=== PATIENT | female | born 1980 | race American Indian/Alaskan Native ===

== ENCOUNTER 2021-01-13 21:19 | Outpatient (CLI) | payer OTHER ==
[2021-01-13] MEDS ORDERED: LACTATED RINGERS 1,000 ML IV ONE (22:19)
[2021-01-13 22:42] LABS: Bilirubin,Urine NEG (Negative); Blood,Urine NEG (Negative); Color,Urine Yellow (Yellow); Mucus,Urine 1+ /HPF
[2021-01-13] MEDS ORDERED: ACETAMINOPHEN 500 MG TAB PO ONE (22:47)
[2021-01-13 23:15] LABS: Basophils % (Auto) 0.3 % (0.0-1.8); Eosinophils # (Auto) 0.1 K/mm3 (0.0-0.4); Hematocrit 32.4 % (30.3-42.9); Hemoglobin 10.1 gm/dl (10.1-14.3); Lymphocytes # (Auto) 2.3 K/mm3 (1.2-5.4); Mean Corpuscular HGB Conc 31 % (30-34); Mean Corpuscular Volume 89 fl (79-97); Monocytes # (Auto) 0.6 K/mm3 (0.0-0.8); Platelet Count 250 K/mm3 (140-440); Red Blood Count 3.66 M/mm3 (3.65-5.03); Red Cell Distribution Width 13.9 % (13.2-15.2)
[2021-01-13 23:25] LABS: Alanine Aminotransferase 10 units/L (7-56); Albumin 3.1 g/dL (3.9-5); Blood Urea Nitrogen 8 mg/dL (7-17); Calcium 8.2 mg/dL (8.4-10.2); Hemolysis Index 12
[2021-01-13 23:28] LABS: BUN/Creatinine Ratio 20
[2021-01-13 23:31] VITALS: BP 105/56
== END 2021-01-14 00:27 | disposition home or self-care (01) ==
LOC: TRG 21:19 → APU 22:14 → TRG 01-14 00:27
PROVIDERS: ATTEND Obstetrics & Gynecology
DX: O26.893 Other specified pregnancy related conditions, third trimester (principal); R55 Syncope and collapse; R42 Dizziness and giddiness; Z3A.28 28 weeks gestation of pregnancy
CPT/HCPCS: 36415; 59025; 80053; 81001; 85025; 96360

== ENCOUNTER 2021-03-25 11:15 | Outpatient (CLI) | payer OTHER ==
[2021-03-25 13:49] VITALS: BP 108/68
--- NOTE | 2021-03-26 09:20 | Ultrasound Report ---
ULTRASOUND OBSTETRIC COMPLETE INDICATION / CLINICAL INFORMATION: EFW and JESUS. well being Clinical Gestational Age (GA) in weeks.days: 38.0 TECHNIQUE: Transabdominal. COMPARISON: None available. FINDINGS: NUMBER: Single PRESENTATION: cephalic PLACENTA: anterior and free of the os. MATERNAL ADNEXA: No significant abnormality. AMNIOTIC FLUID VOLUME: normal AMNIOTIC FLUID INDEX (JESUS) in cm (if measured): 17.5 ANATOMY: anatomical survey was not performed. MEASUREMENTS: - Biparietal Diameter = 9.65 cm = 39.3 weeks.days - Head Circumference = 31.42 cm = 35.2 weeks.days - Abdominal Circumference = 33.65 cm = 37.4 weeks.days - Femur Length = 7.32 cm = 39.5 weeks.days - Estimated Weight (in grams, if calculated): 3244 - Heart Rate (beats per minute): 133 ADDITIONAL FINDINGS: None. PERCENTILE ESTIMATED WEIGHT (if calculated): 49 AVERAGE ULTRASOUND AGE (AUA) in weeks.days = 37.3 IMPRESSION: 1. Single intrauterine with AUA of 37.3 weeks.days 2. No significant sonographic abnormality. Signer Name: Amos Sharp Jr, MD Signed: 03/25/2021 2:36 PM Workstation Name: [id number]
== END 2021-03-25 14:19 | disposition home or self-care (01) ==
LOC: TRG 11:15 → APU 11:16 → TRG 14:19
PROVIDERS: ATTEND Obstetrics & Gynecology
DX: O09.893 Supervision of other high risk pregnancies, third trimester (principal); Z3A.38 38 weeks gestation of pregnancy
CPT/HCPCS: 59025; 76816

== ENCOUNTER 2021-06-05 08:50 | Day surgery (SDC) | payer OTHER ==
[2021-06-02 13:02] LABS: Hematocrit 35.2 % (30.3-42.9); Hemoglobin 11.4 gm/dl (10.1-14.3); Mean Corpuscular HGB Conc 32 % (30-34); Mean Corpuscular Volume 88 fl (79-97); Platelet Count 278 K/mm3 (140-440); Red Blood Count 3.99 M/mm3 (3.65-5.03); Red Cell Distribution Width 15.1 % (13.2-15.2)
--- NOTE | 2021-06-03 21:53 | History and Physical Report ---
History of Present Illness Date of examination: 06/02/21 History of present illness: Patient has been reassessed/reevaluated. H&P has been reviewed. No interval changes. This is a 40 year old Patient desires sterilization. Discussed with various methods of contraceptives including abstinence, barrier and hormonal. Discussed oral, implantable, dermal, injectable,intravaginal and intrauterine methods. Patient declined temporary contraceptives. Discuss the permanency of sterilization. High risk of regret and 0.5 to 1% risk of failure. Questions answered Patient understands and desires to proceed. Vital Signs: Patient Profile: 40 Years Old Female Height: 64 inches (162.56 cm) Weight: 255 pounds BMI: 43.77 Temp: 96.9 degrees F BP sittin / 80 (left arm) Pt. in pain? no Current Method of Contraception: None Date of Last Pap Smear: 08/16/2020 Past History : 5 Term Births: 2 Premature Births: 0 Living Children: 4 Para: 4 Mult. Births: 0 Prev : 0 Aborta: 1 Elect. Ab: 0 Spont. Ab: 1 Ectopics: 0 # 1 Delivery date: 2007 Weeks Gestation: 40 labor: no Delivery type: Anesthesia type: epidural Delivery location: [facility] Infant Sex: Male weight: 7-6 Name: Fabian Comments: No complications. # 2 Delivery date: 02/18/2012 Weeks Gestation: 40 Delivery type: Vaginal Hours of labor: 8 Anesthesia type: epidural Delivery location: [facility] Infant Sex: female weight: 8.19 Name: Kristin Comments: No complications # 3 Delivery date: 05/12/2018 Weeks Gestation: 41 wks labor: no Delivery type: Anesthesia type: epidural Delivery location: [facility] Infant Sex: Female weight: 8-3 Name: Olena Comments: Hyper emesis # 4 Delivery date: 05/2020 Weeks Gestation: 7 wks Delivery type: SAB Comments: No complications or D&C. # 5 Delivery date: 04/05/2021 Weeks Gestation: 39 Delivery type: Vaginal Anesthesia type: epidural Delivery location: [facility] Sex: male weight: 3460 Name: Hemanth Current Allergies: No known allergies Past Medical History: Hidrandenitis Suppurativa Past Surgical History: Negative Past Surgical History Family History Summary: Other Family Member - Has No Family History of Ovarvian Cancer - Entered On: 06/03/2021 Other Family Member - Has Family History Colon Cancer - Entered On: 06/03/2021 Other Family Member - Has No Family History of Breast Cancer - Entered On: 06/03/2021 Other Family Member - Has Family History of Diabetes - Entered On: 06/03/2021 General Comments - FH: CHTN-mother/sister Social History: Marital Status: Children: 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 Year quit smokin Passive smoke exposure: no Alcohol use: no Caffeine use (drinks/day): 0 Exercise (times/week): 3 Seatbelt use: 100 % [employer] History Uterine Surgery (not C/S): negative Operations: Negative Past Surgical History Anesthesia Complications: negative Abnormal PAP: positive, 2008,WNL afterwards Uterine Anomaly: negative REINIER Exposure: negative Infertility: negative Infection History HIV Risk Eval: no TB exposure: no Personal hx. of genital herpes: yes Partner hx. of genital herpes: no Hx of STD: gonorrhea Review of Systems General Complains of fatigue. Denies fever, chills, sweats, anorexia, weakness, malaise, weight loss and sleep disorder. Denies vaginal discharge, incontinence, dysuria, hematuria, urinary frequency, amenorrhea, menorrhagia, abnormal vaginal bleeding, pelvic pain, genital sores, decreased libido, painful periods, painful sex, urinary urgency, hot flashes, vaginal dryness, vaginal itching and vaginal odor. CV Denies chest pains, palpitations, syncope, dyspnea on exertion, orthopnea, PND and peripheral edema. Resp Denies cough, dyspnea at rest, excessive sputum, hemoptysis, wheezing and pleurisy. GI Denies nausea, vomiting, diarrhea, constipation, change in bowel habits, abdominal pain, melena, hematochezia, jaundice, gas/bloating, indigestion/heartburn, dysphagia and odynophagia. Breast Denies left breast lump, right breast lump, nipple discharge, bloody discharge from nipple, breast pain, abnormal mammogram and breast enlargement. Psych Denies depression, anxiety, irritability and mood swings. Past History Past Medical History: other (See HPI) Past Surgical History: Other (See HPI) Social history: other (See HPI) Family history: other (See HPI) Medications and Allergies Allergies Allergy/AdvReac Type Severity Reaction Status Date / Time No Known Allergies Allergy Unverified 05/30/21 15:41 Home Medications Medication Instructions Recorded Confirmed Last Taken Type Vit-Fe Fumar-FA [ 1 tab PO QDAY #30 tablet 04/06/21 05/30/21 Unknown Rx Vitamin] Review of Systems Constitutional: other (See HPI) Exam - Physical Exam Narrative exam: HEENT: normocephalic, no lesions or deformities Skin no ulcers, xanthomas Chest: respiratory effort normal, clear to auscultation CV: regular, normal S1-S2, no murmur, no rub, no gallop Abdomen: Obese, normal bowel sounds, soft, nontender, no HSM Neuro: no gross anomalities Extremities: no clubbing, cyanosis, or edema [employer] Exams Vulva/Vagina: normal appearance, no discharge, lesions. No evidence of cystocele or rectocele. Cervix: normal appearance, no lesions, no discharge Uterus: unable to palpate due to obesity Adnexae: unable to palpate due to obesity Rectovaginal: exam defered - Constitutional Vitals: Temp Pulse Resp BP Pulse Ox 98.1 F 64 20 140/88 100 06/02/21 12:25 06/02/21 12:25 06/02/21 12:25 06/02/21 12:25 06/02/21 12:25 Results - Labs CBC & Chem 7: 06/02/21 12:30 Assessment and Plan - Patient Problems (1) Encounter for sterilization Current Visit: No Status: Acute Plan to address problem: Patient desires sterilization.Discuss the permanency of sterilization. High risk of regret and 0.5 to 1% risk of failure. Discussed options of tubal blockage and salpingectomy and it's possible benefit of preventing ovarian cancer and i ncreased risks of bleeding during the procedure. Discuss the risks of the surgery including infection, bleeding possibly heavy enough to require a blood transfusion, possilble damage to bowel, bladder or ureter. Patient understands and desires to proceed with salpingectomy. (2) Herpes genitalis Current Visit: No Status: Chronic Qualifiers: Herpes simplex infection site: unspecified Qualified Code(s): A60.00 - Herpesviral infection of urogenital system, unspecified (3) Hidradenitis suppurativa Current Visit: No Status: Chronic (4) BMI 40.0-44.9, adult Current Visit: No Status: Chronic Plan to address problem: Patient has been advised that obesity does increase risks of surgical and risks of post operative complications.
[2021-06-05] MEDS ORDERED: LACTATED RINGERS 1,000 ML ONE (09:21)
[2021-06-05] MEDS ORDERED: KETAMINE/STERILE WATER 50 MG/ML SYRINGE ONE (09:23)
[2021-06-05] MEDS ORDERED: MIDAZOLAM 2 MG/2 ML INJ ONE ×2 (09:23→11:07)
[2021-06-05] MEDS ORDERED: propofoL 200 MG/20 ML VIAL IV ONE (09:23)
[2021-06-05] MEDS ORDERED: fentaNYL 100 MCG/2 ML INJ ONE (09:23)
[2021-06-05] MEDS ORDERED: LACTATED RINGERS 1,000 ML IV SCH (09:40)
[2021-06-05] MEDS ORDERED: BUPIVACAINE/PF (0.5%) 5 MG/1 ML 30 ML VIAL INFILTRATI ONE ×2 (09:41→11:15)
--- NOTE | 2021-06-05 09:43 | Anesthesia Day of Surgery ---
Anesthesia Day of Surgery - Day of Surgery Patient Examined: Yes Patient H&P Reviewed: Yes Patient is NPO: Yes
--- NOTE | 2021-06-05 09:46 | Anesthesia Consultation ---
Anesthesia Consult and Med Hx Date of service: 06/05/21 - Airway Anesthetic Teeth Evaluation: Good ROM Head & Neck: Adequate Mental/Hyoid Distance: Adequate Mallampati Class: Class I Intubation Access Assessment: Probably Good - Pulmonary Exam CTA: Yes - Cardiac Exam Cardiac Exam: RRR - Pre-Operative Health Status ASA Pre-Surgery Classification: ASA2 Proposed Anesthetic Plan: General - Pre-Anesthesia Comment Pre-Anesthesia Comments: large tonsils - Pulmonary Hx Smoking: Yes (Former) Hx Asthma: No COPD: No Hx Pneumonia: No - Cardiovascular System Hx Hypertension: No - Central Nervous System Hx Seizures: No Hx Psychiatric Problems: No - Endocrine Hx Renal Disease: No Hx End Stage Renal Disease: No Hx Hypothyroidism: No Hx Hyperthyroidism: No - Hematic Hx Anemia: Yes Hx Sickle Cell Disease: No - Other Systems Hx Alcohol Use: No Hx Cancer: No
[2021-06-05] MEDS ORDERED: dexAMETHasone 20 MG/5 ML VIAL ONE (10:34)
[2021-06-05] MEDS ORDERED: ONDANSETRON 4 MG/2 ML INJ ONE (10:35)
[2021-06-05] MEDS ORDERED: ROCURONIUM 50 MG/5 ML INJ IV ONE (10:35)
[2021-06-05] MEDS ORDERED: KETOROLAC 30 MG/1 ML INJ ONE (10:35)
[2021-06-05] MEDS ORDERED: GLYCOPYRROLATE 0.4 MG/2 ML INJ ONE (11:00)
[2021-06-05] MEDS ORDERED: NEOSTIGMINE 10MG/10 ML INJ MDV ONE (11:00)
[2021-06-05] MEDS ORDERED: SODIUM CHLORIDE 0.9% IRR 1,500 ML BOTTLE IR ONE (11:15)
[2021-06-05] MEDS ORDERED: HYDROcodone/ACETAMINOPHEN 5-325 MG TAB PO PRN (11:18)
[2021-06-05] MEDS ORDERED: ACETAMINOPHEN 325 MG TAB PO PRN (11:18)
--- NOTE | 2021-06-05 11:18 | Operative Report ---
Operative Report Operative Report: Date of procedure: June 05, 2021 Pre-operative diagnosis: Patient desires permanent sterilization Post-operative diagnosis: Same Procedure name(s): Laparoscopic bilateral salpingectomy Surgeon: Berny Guzman MD Technician Support Engineer: ALESSANDRA Anesthesia: General endotracheal EBL: Minimal Complications: None Findings: Patient with uterus approximately 8-10 weeks in size with normal fallopian tubes bilaterally Specimen(s): Bilateral fallopian tubes Patient was brought in the operating room. General anesthesia was induced without difficulty. She was placed in dorsal lithotomy position. Prepped and draped in usual sterile manner. Her urinary bladder with was emptied with a red rubber catheter. Speculum placed in her vagina and Sargis uterine manipulator was placed for uterine manipulation without difficulty. Attention was then switched to the patient's abdomen. An infra-umbilical incision was made with a scalpel. This incision was spread with a hemostat. A 5 mm trocar was placed in this incision while lifting high the abdominal wall. Intra-abdominal presence was verified directly with the laparoscope. The patient was then insufflated to approximately 3 L of CO2 gas. The patient's findings as noted above. An accessory puncture was made suprapubically. The 8 mm trocar was placed through this incision under direct visualization with no evidence of internal organ damage. Each of the fallopian tube were identified by its fimbriated end. Starting with the right fallopian tube approximately 1 to 2 cm from the cornea LigaSure device was used to cross sectional cut the tube. From this point the ligature device was used to cauterize and cut the mesosalpinx until the fimbriated end was reached detaching the tube. The fallopian tube was then removed through the accessory port attention was then switched to the contralateral tube. Same procedure was performed detaching that tube and removed it through the accessory port. The remaining stump was inspected and found to be hemostatic. At this time all instruments were removed. The patient was de-insufflated. The skin incisions were closed subcuticularly with 4-0 Vicryl. Marcaine was injected into the surgical incisions, for postoperative pain relief. The patient tolerated procedure well. She was awakened in the operating room and accompanied to the recovery room in good condition.
--- NOTE | 2021-06-05 11:21 | Short Stay Summary ---
Short Stay Documentation Date of service: 06/05/21 - History Principal diagnosis: Desires permanent sterilization Past Medical History: other (See HPI) Past Surgical History: Other (See HPI) Social history: other (See HPI) - Allergies and Medications Current Medications: Allergies No Known Allergies Allergy (Unverified 05/30/21 15:41) Home Medications Medication Instructions Recorded Confirmed Last Taken Type Vit-Fe Fumar-FA [ 1 tab PO QDAY #30 tablet 04/06/21 05/30/21 Unknown Rx Vitamin] Ibuprofen [Motrin] 800 mg PO TID PRN #30 tablet 06/05/21 Unknown Rx oxyCODONE /ACETAMINOPHEN [Percocet 1 tab PO Q6HR PRN #10 tablet 06/05/21 Unknown Rx 5/325 mg] Active Medications Acetaminophen (Acetaminophen 325 Mg Tab) 650 mg PO Q4H PRN PRN Reason: Pain MILD(1-3)/Fever >100.5/ROTHMAN Hydrocodone Bitart/Acetaminophen (Hydrocodone/Acetaminophen 5-325 Mg Tab) 2 each PO Q6H PRN PRN Reason: Pain, Moderate (4-6) Lactated Ringer's (Lactated Ringers) 1,000 mls @ 125 mls/hr IV PREOP NITESH - Physical exam General appearance: no acute distress Integumentary: no rash HEENT: Atraumatic Lungs: Normal air movement Breasts: deferred Heart: Regular rate Gastrointestinal: normal, hypoactive bowel sounds, distended (Consistent with post laparoscopy) Female Genitourinary: normal Rectal Exam: deferred Extremities: no ischemia - Brief post op/procedure progress note Date of procedure: 06/05/21 (See dictated operative note for detail) Condition: stable - Hospital course Hospital course: Patient was admitted underwent the above him procedure without any complications. Patient will be discharged with follow-up in office in 1-2 weeks for postop check. - Disposition Condition at discharge: Good Disposition: 01 HOME / SELF CARE / HOMELESS - Discharge Diagnoses (1) Encounter for sterilization Status: Acute (2) Herpes genitalis Status: Chronic Qualifiers: Herpes simplex infection site: unspecified Qualified Code(s): A60.00 - Herpesviral infection of urogenital system, unspecified (3) Hidradenitis suppurativa Status: Chronic (4) BMI 40.0-44.9, adult Status: Chronic Short Stay Discharge Plan Activity: advance as tolerated Diet: regular Additional Instructions: Patient to call office for any fever, chills, nausea, vomiting or pain not controlled by pain medication. Follow up with: PRIMARY CARE,MD [Primary Care Provider] - 7 Days Prescriptions: Ibuprofen [Motrin] 800 mg PO TID PRN #30 tablet PRN Reason: Pain oxyCODONE /ACETAMINOPHEN [Percocet 5/325 mg] 1 tab PO Q6HR PRN #10 tablet PRN Reason: Pain
--- NOTE | 2021-06-05 13:20 | Post Anesthesia Evaluation ---
- Post Anesthesia Evaluation Patient Participated: Yes Airway Patent: Yes Stable Respiratory Function: Yes Nausea/Vomiting: No Temp > 96.8F: Yes Pain Manageable: Yes Adequeate Hydration: Yes Anesthesia Complications: No Block Receding Appropriately: Not Applicable Patient on Ventilator: No
[2021-06-05 16:48] VITALS: BP 153/87
== END 2021-06-05 08:51 | disposition home or self-care (01) ==
LOC: OR 08:50
PROVIDERS: ATTEND Obstetrics & Gynecology
DX: Z30.2 Encounter for sterilization (principal); D50.9 Iron deficiency anemia, unspecified; Z20.822 Contact with and (suspected) exposure to COVID-19; Z87.891 Personal history of nicotine dependence; Z79.899 Other long term (current) drug therapy; Z83.3 Family history of diabetes mellitus; Z80.8 Family history of malignant neoplasm of other organs or systems; Z82.49 Family history of ischemic heart disease and other diseases of the circulatory system
CPT/HCPCS: 36415; 58670; 84703; 85027; 88302; J1100; J1815; J1885; J2250; J2405; J2704; J2710; J3010; J3490; J7120; U0003